=== PATIENT | female | born 1990 | race African-American/Black ===

== ENCOUNTER 2023-11-25 13:00 | Outpatient (CLI) | payer OTHER | END 2023-11-25 13:01 | disposition home or self-care (01) | LOC: SC 13:00 | PROVIDERS: ATTEND Nurse Practitioner Family | DX: G47.33 Obstructive sleep apnea (adult) (pediatric) (principal); R09.02 Hypoxemia; E66.9 Obesity, unspecified; Z68.35 Body mass index [BMI] 35.0-35.9, adult | CPT/HCPCS: 95806 ==

== ENCOUNTER 2023-12-09 09:08 | Outpatient (CLI) | payer OTHER ==
--- NOTE | 2023-12-09 09:29 | Sleep Patient Instructions ---
Sleep Center Visit Summary - Patient Visit Information Reason for Visit: Sleep study follow-up - Patient Instructions Instructions Attached: CPAP Additional Instructions: You are being started on CPAP therapy with pressure setting at 4-15 cmH2O. You will need to call the sleep care office to set up your follow up once you have your APAP machine and we will schedule a visit to check compliance and response to therapy at that time. You may call the office with any concerns about pressure feeling too low or too much for adjustment, if needed. You should contact DME supplier for any questions or concerns about mask or equipment. Please call office to schedule a follow up appointment in the sleep care office one month after obtaining new device. - Clinic Information Contact: [facility] [address] [place] [address] [email or web address] T: [phone]
--- NOTE | 2023-12-09 09:33 | SLEEP CARE CONSULTATION ---
Information from patient questionnaire entered by Domi Castro. I have reviewed and concur with the information entered by Domi Castro. This document represents the service I personally performed and the decisions made by me, Torrie Garay ARNP. History of Present Illness Service Date and Time: 12/09/2023 09 Initial [place] Sleepiness Scale score: 10 (11/03/23) Current [place] Sleepiness Scale score: 12 Additional HPI information: THANG JAMES returns for follow up and results of the recently performed home sleep study. The sleep study showed mild obstructive sleep apnea with an average AHI of 6 and magda oxygen saturation of 86%. I explained the pathophysiology behind obstructive sleep apnea. We then spent quite a bit of time discussing different treatment options. For mild obstructive sleep apnea, surgery and oral appliance are alternatives to nasal CPAP therapy but in moderate or severe cases, nasal CPAP is the most effective and reliable treatment. I reviewed the impact of weight changes on sleep apnea and strongly recommended losing weight. After some discussion, the patient opted to go with the nasal CPAP therapy. Nasal autoCPAP set at 4-15 cmH20 will be ordered with rationale explained. A manual titration study will be ordered if unable to find optimal pressure with office adjustments. I explained how CPAP machine works and what to expect when using the machine. Using CPAP every night in order to get used to it was emphasized. Patient advised to put CPAP mask on before getting into bed so as not to fall asleep without CPAP. To assist acclimation to CPAP use, it could also be used for a short time during day while reading or watching TV. The patient was instructed to call the CPAP supplier to discuss any mechanical problem that may occur. If the mask given is uncomfortable or is difficult to keep on through the night even with adjustment, contact the CPAP supplier as many will replace with another mask style if notified before 30 days. If snoring or perceives is not getting enough air or too much air from the machine, notify this office. Patient does not drink alcohol. Patient was cautioned about risks of drowsy driving until sleepiness symptoms resolve. Patient denies drowsy driving. Sleep Study - Results Type of Sleep Study: Home sleep study (COMPLETED 11/25/2023) Prior sleep studies: Yes Polysomnography/Home Sleep Study results: Physician Impression: The quality of the study is good. The length of the study is adequate (> 240 minutes). Please also see the tabulated and graphic data. 1. Obstructive Sleep Apnea-Hypopnea (ICD-10 G47.33), mild, with an AHI of 6.0/hr and magda SaO2 of 86%. During the study, the patient had 12 apneas (12 obstructive, 0 central, 0 mixed) and 31 hypopneas. The longest episode lasted 59.5 seconds. The respiratory events occurred independently of sleep stage and body position (supine AHI was 3.7 and non-supine, 6.89). 2. Hypoxemia (ICD-10 R09.02), mild, with the lowest oxygen saturation of 86 % and 1.8 minutes with SaO2 under 90%. Baseline oxygen saturation was normal (Average oxygen saturation was 93%). Allergies and Home Medications Known drug allergies: No Drug allergies reviewed: Yes Home medication list reviewed: Yes (no changes) Allergy and home medication list: Allergies No Known Drug Allergies Allergy Review of Systems Review of systems same as previous: Yes (no changes) Physical Exam Vital signs obtained and entered by: TORRIE YO Blood Pressure: 113/47 Cuff size: regular (right arm) Heart Rate: 67 O2 Saturation: 99 Height: 5 ft 4.5 in Weight: 211 lb 12.8 oz Body Mass Index: 35.8 BMI Classification: Obese Impression and Plan 1. Obstructive Sleep Apnea-Hypopnea Syndrome, mild, with lowest oxygen saturation of 86%. Obviously this is the cause of the patients symptoms of unrefreshed sleep, and excessive daytime sleepiness. Positive pressure therapy could benefit migraines. As mentioned above, the patient will be started on nasal autoCPAP therapy with pressure set at 4-15 cmH2O. Compliance guidelines also reviewed. A copy of compliance guidelines will be given for reference at check out. 2. Hypoxemia, mild, with a magda oxygen saturation of 86% and 1.8 minutes spent under 90%. The baseline oxygen saturation was normal with an average oxygen saturation of 93%. 3. Obesity, unspecified. Currently patients BMI is 35.8. Obesity increases the risk of apnea, CPAP pressure requirements and overall health risks especially cardiovascular and diabetes. Thus patient is advised to lose weight. * Nasal auto CPAP therapy, pressure at 4-15 cmH2O. * Attempt to lose weight. * Avoid alcohol consumption near bedtime. * Avoid supine sleep until using CPAP. * The patient is again cautioned about driving until sleepiness completely resolves. * Return one month after CPAP obtained. I will assess response to therapy and compliance at that time. Counseling Topics: Sleeping position, Weight loss health impact Prescriptions: Auto CPAP Follow up with Sleep Care in: other (compliance visit) Visit Type: In Office Time Spent with Patient (minutes): 20 Provider Statement: I spent 100% of the Face to Face Visit with the patient with greater than 50% spent counseling the patient and coordination of care.
[2023-12-09 09:36] VITALS: BP 113/47; O2SAT 99
== END 2023-12-09 09:09 | disposition home or self-care (01) ==
LOC: SC 09:08
PROVIDERS: ATTEND Nurse Practitioner Family
DX: G47.33 Obstructive sleep apnea (adult) (pediatric) (principal); R09.02 Hypoxemia; E66.9 Obesity, unspecified; Z68.35 Body mass index [BMI] 35.0-35.9, adult
CPT/HCPCS: 99212; 99213

== ENCOUNTER 2024-03-02 06:15 | Day surgery (SDC) | payer OTHER ==
[2024-03-02] MEDS ORDERED: metroNIDAZOLE 500 MG/100 ML 500 MG/100 ML BAG ONE (06:17)
[2024-03-02] MEDS: LACTATED RINGERS 1,000 ML IV ONE ×2 (06:20→09:29)
[2024-03-02 06:36] LABS: HCG UR QUAL NEGATIVE
[2024-03-02] MEDS: ACETAMINOPHEN 325 MG TABLET PO ONE (06:45)
[2024-03-02] MEDS ORDERED: fentaNYL 100 MCG/2 ML VIAL ONE ×2 (06:57→08:49)
[2024-03-02] MEDS ORDERED: MIDAZOLAM 2 MG/2 ML VIAL ONE (06:57)
[2024-03-02] MEDS ORDERED: PROPOFOL 200 MG/20 ML VIAL IVP ONE (06:58)
[2024-03-02] MEDS ORDERED: BUPIVACAINE 0.5% PF 10 ML VIAL ONE (07:13)
[2024-03-02] MEDS ORDERED: POTASSIUM IODIDE/IODINE 14 ML SOLUTION ONE (07:13)
--- NOTE | 2024-03-02 07:16 | ANESTHESIA ---
Pre-Anesthesia VS, & Labs - Diagnosis HOUSTON-3 - Procedure LEEP Vital Signs: Temp Pulse Resp BP Pulse Ox O2 Flow Rate 36.0 C L 88 16 122/74 99 0 03/02/24 06:36 03/02/24 06:36 03/02/24 06:36 03/02/24 06:36 03/02/24 06:36 03/02/24 06:36 Height: 5 ft 5 in Weight (kg): 95.6 kg Body Mass Index: 35.0 BMI Classification: Obese - NPO >8 hours - Is Patient ?: No Home Medications and Allergies Home Medications: Ambulatory Orders Pnv No.95/Ferrous Fum/Folic AC [ Caplet] 1 each PO DAILY 02/22/24 Erenumab-Aooe [Aimovig Autoinjector] 70 mg SUBQ ONCE 11/04/23 Propranolol [Inderal] 10 mg PO DAILY 11/04/23 Rimegepant Sulfate [Nurtec Odt] 75 mg PO ONCE PRN 11/04/23 Pnv No.95/Ferrous Fum/Folic AC [ Caplet] 1 each PO DAILY 02/22/24 Allergies/Adverse Reactions: Allergies Allergy/AdvReac Type Severity Reaction Status Date / Time No Known Drug Allergies Allergy Verified 12/07/23 13:15 Anes History & Medical History - Anesthetic History Anesthesia Complications: reports: No previous complications - Medical History Cardiovascular: reports: None Pulmonary: reports: Sleep apnea, CPAP use Gastrointestinal: reports: None Urinary: reports: None Musculoskeletal: reports: Chronic back pain Endocrine/Autoimmune: reports: None Skin: reports: None - Surgical History General: reports: Cholecystectomy Exam General: Alert, Oriented x3 Dental: WNL Mouth Opening: Greater than 4 Fingerbreadths Neck Mobility: Normal Mallampati classification: II Thyromental Distance: greater than 6 cm Respiratory: Lungs clear Cardiovascular: Regular rate Plan Anesthesia Type: General Consent for Procedure(s) Verified and Reviewed: Yes Code Status: Attempt Resuscitation ASA classification: 2-Mild systemic disease Is this case an emergency?: No
[2024-03-02] MEDS ORDERED: ATROPINE ABBOJECT 1 MG/10 ML SYRINGE IVP PRN (07:17)
[2024-03-02] MEDS ORDERED: METOCLOPRAMIDE 10 MG/2 ML VIAL IVP PRN (07:17)
[2024-03-02] MEDS ORDERED: ONDANSETRON 4 MG/2 ML VIAL IVP PRN (07:17)
[2024-03-02] MEDS ORDERED: HYDROmorphone 0.5 MG/0.5 ML SYRINGE IVP PRN (07:17)
[2024-03-02] MEDS ORDERED: ePHEDrine 50 MG/ML VIAL IVP PRN (07:17)
[2024-03-02] MEDS ORDERED: NALOXONE 0.4 MG/ML VIAL IVP PRN (07:17)
[2024-03-02] MEDS ORDERED: MORPHINE 2 MG/ML CARPUJECT IVP PRN (07:17)
[2024-03-02] MEDS ORDERED: LIDOCAINE-PF 2% 10 ML AMP SUBQ ONE (07:35)
[2024-03-02] MEDS ORDERED: LEVONORGESTREL 20 MCG/24H IUD IY ONE (07:44)
[2024-03-02] MEDS ORDERED: LIDOCAINE 1%-EPI 1:100000 20 ML MDV ONE (07:48)
[2024-03-02] MEDS ORDERED: LACTATED RINGERS 1,000 ML IV SCH (08:00)
[2024-03-02] MEDS ORDERED: ONDANSETRON 4 MG/2 ML VIAL ONE (08:04)
[2024-03-02] MEDS ORDERED: DEXAMETHASONE 4 MG/ML VIAL ONE (08:04)
[2024-03-02] MEDS: LEVONORGESTREL 20 MCG/24H IUD IY ONE (08:25)
[2024-03-02] MEDS: LIDOCAINE 1%-EPI 1:100000 30 ML MDV SUBQ ONE (08:25)
--- NOTE | 2024-03-02 08:47 | OPERATIVE REPORT ---
Operative Report - General Procedure Date: 03/02/24 Planned Procedure: LEEP of cervix, Mirena IUD insertion Pre-Op Diagnosis: HOUSTON 2-3 of cervix, desires contraception Procedure Performed: as above Post Op Diagnosis: same - Procedure Note Primary Surgeon: Sharon Lee MD Anesthesia Provider: Daniel Chan CRNA Anesthesia Technique: General LMA Pathology: top of cervix, bottom of cervix, endocervical, ECC IV Fluids (mL): 700 Estimated Blood Loss (mL): 25 Urine Output (mL): 0 Indications: HOUSTON 2-3 of cervix by prior biopsy. Desires contraception. was on Depo Provera but stopped it. Findings: Uterus sounds 6.5 cm after leep. Cervix with visible transformation zone. No obvious lesions seen with vinegar wash. Uterus with prolapse to mid vagina and significant cystocele. Clitoris is quite enlarged. Complications: none - Other Other Information/Narrative: patient brought to OR and identity confirmed. LMA anesthesia administered. Placed in Deep stirrups. Time out done. Flagyl 500 mg in iv. no prep. Speculum placed. cervix washed with vinegar and examined. Tenaculum placed. Square Loop used with at 40 to remove top and then bottom of cervix. Small Loop to remove top hat of endocervical canal. ECC done. MOnsels to area. Cervix sounded to 6.5 cm and IUD placed easily. Instruments removed. Patient awakened and brought to recovery room stable.
[2024-03-02] MEDS: fentaNYL 100 MCG/2 ML VIAL IVP PRN (08:52)
[2024-03-02] MEDS ORDERED: KETOROLAC 15 MG/ML VIAL ONE (09:04)
[2024-03-02] MEDS: KETOROLAC 30 MG/ML VIAL IVP PRN (09:08)
[2024-03-02 09:21] LABS: ALBUMIN/GLOBULIN RATIO 1.3 (1.0-2.2); BILIRUBIN,TOTAL 0.7 mg/dL (0.2-1.0); CALCIUM 9.5 mg/dL (8.5-10.3); CREATININE 0.9 mg/dL (0.6-1.3); POTASSIUM 4.3 mmol/L (3.5-4.5); TOTAL PROTEIN 7.1 g/dL (6.4-8.9)
--- NOTE | 2024-03-02 09:47 | ANESTHESIA POST OP EVALUATION ---
Anesthesia Post Eval - Post Anesthesia Eval Vitals: Last Vital Signs Temp 36.5 C 03/02/24 09:35 Pulse 71 03/02/24 09:35 Resp 16 03/02/24 09:35 BP 113/72 03/02/24 09:35 Pulse Ox 100 03/02/24 09:35 O2 Flow Rate 0 03/02/24 06:36 CV Function Including HR & BP: Stable Pain Control: Satisfactory Nausea & Vomiting: Negative Mental Status: Baseline Respiratory Status: Airway Patent Hydration Status: Satisfactory Anesthesia Complications: None
[2024-03-02 09:51] VITALS: O2SAT 99
[2024-03-02] MEDS ORDERED: oxyCODONE 5 MG TABLET ONE (09:52)
[2024-03-02] MEDS: oxyCODONE 5 MG TABLET PO PRN (09:54)
[2024-03-02 10:21] VITALS: BP 100/59
[2024-03-09 09:10] LABS: % FREE TESTOSTERONE 3.46 % (0.50-2.80); TESTOSTERONE TOTAL LC/MS 18.6 ng/dL (10.0-55.0)
== END 2024-03-02 06:16 | disposition home or self-care (01) ==
LOC: SDS 06:15
PROVIDERS: ATTEND Obstetrics & Gynecology
PROC: 0UBC7ZX Excision of Cervix, Via Natural or Artificial Opening, Diagnostic (ICD-10-PCS; principal; 2024-03-02 07:30)
DX: N87.1 Moderate cervical dysplasia (principal); Z30.430 Encounter for insertion of intrauterine contraceptive device; E66.9 Obesity, unspecified; Z68.35 Body mass index [BMI] 35.0-35.9, adult; G47.33 Obstructive sleep apnea (adult) (pediatric)
CPT/HCPCS: 36415; 57522; 58300; 80053; 81025; 82627; 83498; 84402; 84403; A9270; J7120; J7298